=== PATIENT | male | born 2000 | race Caucasian/White ===

== ENCOUNTER 2019-04-19 15:37 | Emergency (ER) | payer SELFPAY ==
--- NOTE | 2019-04-19 16:11 | EDM.PDOC ---
ED HPI GENERAL MEDICAL PROBLEM - General Chief Complaint: Genitourinary Problem Stated Complaint: SWELLED SCROTUM Time Seen by Provider: 04/19/19 15:52 Source of Information: Reports: Patient History Limitations: Reports: No Limitations - History of Present Illness INITIAL COMMENTS - FREE TEXT/NARRATIVE: HISTORY AND PHYSICAL: History of present illness: Patient is a 18-year-old male presents to the ED today with concern of left- sided testicular pain since this morning. Patient states the veins in the left side of his testicle have been dilated for the past 2 years. Patient states starting today he has had pain in the left testicle that has the dilated veins. Patient states he has not taken anything for her symptoms. Patient denies any other symptoms or concerns at this time. Patient denies fever, chills, chest pain, shortness of breath, or cough. Denies headache, neck stiff ness, change in vision, syncope, or near syncope. Denies nausea, vomiting, abdominal pain, diarrhea, constipation, or dysuria. Has not noted any blood in urine or stool. Patient has been eating and drinking appropriately. Review of systems: As per history of present illness and below otherwise all systems reviewed and negative. Past medical history: As per history of present illness and as reviewed below otherwise noncontributory. Surgical history: As per history of present illness and as reviewed below otherwise noncontributory. Social history: See social history for further information Family history: As per history of present illness and as reviewed below otherwise noncontributory. Physical exam: General: Patient is alert, oriented, and in no acute distress. Patient sitting comfortably on exam table. HEENT: Atraumatic, normocephalic, pupils equal and reactive bilaterally, negative for conjunctival pallor or scleral icterus, mucous membranes moist, TMs normal bilaterally, throat clear, neck supple, nontender, trachea midline. No drooling or trismus noted. No meningeal signs. No hot potato voice noted. Lungs: Clear to auscultation, breath sounds equal bilaterally, chest nontender. Heart: S1S2, regular rate and rhythm without overt murmur Abdomen: Soft, nondistended, nontender. Negative for masses or hepatosplenomegaly. Negative for costovertebral tenderness. Pelvis: Stable nontender. Genitourinary: Negative rashes, ulcers, scars, nodules, induration. Exam of testicle is limited due to pain. Left testicle does show appearance of varicocele with pain of the scrotal sac but the testicle itself is nonpainful to palpation. Right testicle nonpainful to palpation. Rectal: Deferred. Skin: Intact, warm, dry. No lesions or rashes noted. Extremities: Atraumatic, negative for cords or calf pain. Neurovascular unremarkable. Neuro: Awake, alert, oriented. Cranial nerves II through XII unremarkable. Cerebellum unremarkable. Motor and sensory unremarkable throughout. Exam nonfocal. Notes: Discussed the importance for follow-up with the urologist. Voices understanding and is agreeable to plan of care. Denies any further questions or concerns at this time. Diagnostics: CBC, CMP, UA, gonorrhea and chlamydia, Scrotum/Contents US Therapeutics: None Prescription: None Impression: Varicocele, left Hydrocele, bilateral Plan: 1. Alternate ibuprofen and Tylenol as directed for pain and discomfort. 2. Follow-up with urologist as discussed. Return to the ED as needed and as discussed. Definitive disposition and diagnosis as appropriate pending reevaluation and review of above. Left Testicle Pain Score (Numeric/FACES): 3 - Related Data Allergies Allergy/AdvReac Type Severity Reaction Status Date / Time No Known Allergies Allergy Verified 04/19/19 15:48 Home Meds: Home Meds . [No Known Home Meds] 04/19/19 [History] Past Medical History - Past Health History Medical/Surgical History: Denies Medical/Surgical History Social & Family History - Family History Family Medical History: Noncontributory - Tobacco Use Smoking Status *Q: Never Smoker Second Hand Smoke Exposure: No - Caffeine Use Caffeine Use: Reports: Coffee, Soda - Recreational Drug Use Recreational Drug Use: No ED ROS GENERAL - Review of Systems Review Of Systems: ROS reveals no pertinent complaints other than HPI. ED EXAM, RENAL/ - Physical Exam Exam: See Below (See dictation) Course - Vital Signs Last Recorded V/S: Last Vital Signs Temp 37.0 C 04/19/19 15:48 Pulse 102 H 04/19/19 15:48 Resp 18 04/19/19 15:48 BP 125/82 04/19/19 15:48 Pulse Ox 97 04/19/19 15:48 - Orders/Labs/Meds Orders: Active Orders 24 hr Category Date Time Status Scrotal Duplex Ltd [US] Routine Exams 04/19/19 17:21 Taken CHLAMYDIA AND GONORRHEA BY [facility] Stat Lab 04/19/19 16:21 Received Labs: Laboratory Tests 04/19/19 04/19/19 04/19/19 Range/Units 16:20 16:20 16:21 WBC 8.28 (4.0-11.0) K/uL RBC 5.39 (4.50-5.90) M/uL Hgb 17.0 (13.0-17.0) g/dL Hct 48.4 (38.0-50.0) % MCV 89.8 (80.0-98.0) fL MCH 31.5 (27.0-32.0) pg MCHC 35.1 (31.0-37.0) g/dL RDW Std Deviation 42.4 (28.0-62.0) fl RDW Coeff of Oanh 13 (11.0-15.0) % Plt Count 242 (150-400) K/uL MPV 10.50 (7.40-12.00) fL Neut % (Auto) 70.8 (48.0-80.0) % Lymph % (Auto) 22.3 (16.0-40.0) % [place] % (Auto) 6.3 (0.0-15.0) % Eos % (Auto) 0.4 (0.0-7.0) % Baso % (Auto) 0.2 (0.0-1.5) % Neut # (Auto) 5.9 H (1.4-5.7) K/uL Lymph # (Auto) 1.9 (0.6-2.4) K/uL [place] # (Auto) 0.5 (0.0-0.8) K/uL Eos # (Auto) 0.0 (0.0-0.7) K/uL Baso # (Auto) 0.0 (0.0-0.1) K/uL Nucleated RBC % 0.0 /100WBC Nucleated RBCs # 0 K/uL Sodium 134 L (136-148) mmol/L Potassium 3.2 L (3.5-5.1) mmol/L Chloride 99 (98-107) mmol/L Carbon Dioxide 26.8 (21.0-32.0) mmol/L BUN 9 (7.0-18.0) mg/dL Creatinine 1.0 (0.8-1.3) mg/dL Est Cr Clr Drug Dosing 102.17 mL/min Estimated GFR (MDRD) > 60.0 ml/min Glucose 122 H (74-106) mg/dL Calcium 9.2 (8.5-10.1) mg/dL Total Bilirubin 1.8 H (0.2-1.0) mg/dL AST 17 (15-37) IU/L ALT 15 (14-63) IU/L Alkaline Phosphatase 68 (46-116) U/L Total Protein 8.1 (6.4-8.2) g/dL Albumin 4.8 (3.4-5.0) g/dL Globulin 3.3 (2.6-4.0) g/dL Albumin/Globulin Ratio 1.5 (0.9-1.6) Urine Color YELLOW Urine Appearance CLEAR Urine pH 7.0 (5.0-8.0) Ur Specific [place] 1.020 (1.001-1.035) Urine Protein 30 H (NEGATIVE) mg/dL Urine Glucose (UA) NEGATIVE (NEGATIVE) mg/dL Urine Ketones 15 H (NEGATIVE) mg/dL Urine Occult Blood NEGATIVE (NEGATIVE) Urine Nitrite NEGATIVE (NEGATIVE) Urine Bilirubin SMALL H (NEGATIVE) Urine Ictotest NEGATIVE Urine Urobilinogen 1.0 (<2.0) EU/dL Ur Leukocyte Esterase NEGATIVE (NEGATIVE) Urine RBC 0-2 (0-2/HPF) Urine WBC 0-2 (0-5/HPF) Ur Epithelial Cells FEW (NONE-FEW) Amorphous Sediment LIGHT (NEGATIVE) Urine Bacteria FEW (NEGATIVE) Urine Mucus MODERATE (NONE-MOD) Urinalysis Comment Departure - Departure Time of Disposition: 18:01 Disposition: Home, Self-Care 01 Clinical Impression: Varicocele Hydrocele Qualifiers: Hydrocele type: unspecified Qualified Code(s): N43.3 - Hydrocele, unspecified - Discharge Information Referrals: PCP,None [Primary Care Provider] - Forms: ED Department Discharge Additional Instructions: The following information is given to patients seen in the emergency department who are being discharged to home. This information is to outline your options for follow-up care. We provide all patients seen in our emergency department with a follow-up referral. The need for follow-up, as well as the timing and circumstances, are variable depending upon the specifics of your emergency department visit. If you don't have a primary care physician on staff, we will provide you with a referral. We always advise you to contact your personal physician following an emergency department visit to inform them of the circumstance of the visit and for follow-up with them and/or the need for any referrals to a consulting specialist. The emergency department will also refer you to a specialist when appropriate. This referral assures that you have the opportunity for follow-up care with a specialist. All of these measure are taken in an effort to provide you with optimal care, which includes your follow-up. Under all circumstances we always encourage you to contact your private physician who remains a resource for coordinating your care. When calling for follow-up care, please make the office aware that this follow-up is from your recent emergency room visit. If for any reason you are refused follow-up, please contact the [facility] Emergency Department at and asked to speak to the emergency department charge nurse. [facility] [address] [place] [address] [address] [facility] [address] [place] [id number] 1. Alternate ibuprofen and Tylenol as directed for pain and discomfort. 2. Follow-up with urologist as discussed. Return to the ED as needed and as discussed. - My Orders Last 24 Hours: My Active Orders 04/19/19 16:21 CHLAMYDIA AND GONORRHEA BY COUNTS INCLUDE 234 BEDS AT THE [facility] Stat - Assessment/Plan Last 24 Hours: My Active Orders 04/19/19 16:21 CHLAMYDIA AND GONORRHEA BY COUNTS INCLUDE 234 BEDS AT THE [facility] Stat
[2019-04-19 16:51] LABS: CHLORIDE,CL 99 mmol/L (98-107); SODIUM,NA 134 mmol/L (136-148)
--- NOTE | 2019-04-19 17:56 | US ---
Indication: Testicular pain and swelling Technique: Ultrasound of the scrotum and contents. Sonographic piña-scale images were obtained with spectral and color Doppler waveform and spectral waveform analysis of the testicles. Comparison: None Findings: Bother testicles are normal in size and echotexture. No masses. No suspicious calcifications. Normal arterial and venous color Doppler blood flow and spectral waveforms are present in both testicles. Epididymis: Unremarkable bilaterally. Normal blood flow. Other: Trace bilateral hydroceles are present. There is a left-sided varicocele. Scrotal wall is normal. Impression: Trace bilateral hydroceles and left-sided varicocele are present. Remainder of the exam is unremarkable. No sign of torsion, inflammation, or other explanation for pain or swelling. Dictated by Ramírez Allen MD @ Apr 19 2019 5:53PM Signed by Dr. Ramírez Allen @ Apr 19 2019 5:55PM
--- NOTE | 2019-04-22 09:26 | US ---
EXAM DATE: 04/19/19 PATIENT'S AGE: 18 Patient: DAVID MORTENSEN Facility: [facility] Site . Site : 2000 Study: US-Pelvis [id number]/[id number] 5:20:50 PM Ordering Physician: Que Smith Final Report: Indication: Testicular pain and swelling Technique: Ultrasound of the scrotum and contents. Sonographic piña-scale images were obtained with spectral and color Doppler waveform and spectral waveform analysis of the testicles. Comparison: None Findings: Bother testicles are normal in size and echotexture. No masses. No suspicious calcifications. Normal arterial and venous color Doppler blood flow and spectral waveforms are present in both testicles. Epididymis: Unremarkable bilaterally. Normal blood flow. Other: Trace bilateral hydroceles are present. There is a left-sided varicocele. Scrotal wall is normal. Impression: Trace bilateral hydroceles and left-sided varicocele are present. Remainder of the exam is unremarkable. No sign of torsion, inflammation, or other explanation for pain or swelling. Dictated by Ramírez Allen MD @ Apr 19 2019 5:53PM Signed by: Ramírez Allen MD @04/19/2019 5:55:56 PM (Electronic Signature) Report Signed by Proxy. YARELI
== END 2019-04-19 18:22 | disposition home or self-care (01) ==
LOC: MW.ED 15:37
DX: I86.1 Scrotal varices (principal); N43.3 Hydrocele, unspecified
CPT/HCPCS: 36415; 76870; 76870-26; 80053; 81001; 85025; 87491; 87591; 93976; 93976-26; 99283; 99284-25